=== PATIENT | male | born 1935 | race Caucasian/White ===

== ENCOUNTER 2019-12-10 11:01 | Day surgery (SDC) | payer OTHER ==
[2019-11-28 16:02] LABS: BASOPHILS # (AUTO) 0.1 X10'3 (0-0.2); BASOPHILS % (AUTO) 0.6 % (0-1); EOSINOPHILS % (AUTO) 0.1 % (0-6)
[2019-11-28 16:04] LABS: LYMPHOCYTES # (AUTO) 2.4 X10'3 (1.1-4.8); LYMPHOCYTES % (AUTO) 13.9 % (21-51); MEAN CORPUSCULAR HEMOGLOBIN 29.3 PG (27.0-31.0); MEAN CORPUSCULAR HGB CONC 32.9 g/dL (33.0-36.5); MEAN CORPUSCULAR VOLUME 88.9 FL (78-98); MEAN PLATELET VOLUME 10.8 FL (7.4-10.4); MONOCYTES % (AUTO) 5.6 % (2-12); NEUTROPHILS # (AUTO) 13.9 X10'3 (1.8-7.7); NEUTROPHILS % (AUTO) 79.8 % (42-75); PRE OP HEMATOCRIT 32.2 % (42.0-52.0); RED BLOOD COUNT 3.62 X10'6 (4.70-6.10); RED CELL DISTRIBUTION WIDTH 17.4 % (11.5-14.5)
[2019-11-28 16:17] LABS: PRE OP INR 1.1 INR; PRE OP PROTIME 11.3 SECONDS (9.0-12.0)
[2019-11-28 16:21] LABS: ALBUMIN 4.2 G/DL (3.4-5.0); ALBUMIN/GLOBULIN RATIO 1.1 (1.1-1.5); ALKALINE PHOSPHATASE 84 IU/L (46-116); BLOOD UREA NITROGEN 52 MG/DL (7-18); BUN/CREATININE RATIO 17.9 (5.4-32.0); CHLORIDE 97 MMOL/L (99-107); CREATININE 2.91 MG/DL (0.60-1.10); PRE OP ALT 28 U/L (30-65); PRE OP ANION GAP 7 (8-16); PRE OP AST 31 U/L (10-37); PRE OP BILIRUB, TOTAL 0.4 MG/DL (0.0-1.0); PRE OP GLUCOSE 110 MG/DL (70-104); PRE OP POTASSIUM 3.6 MMOL/L (3.4-5.1); PRE OP SODIUM 135 MMOL/L (135-145); TOTAL CARBON DIOXIDE 31.4 MMOL/L (24-32); TOTAL PROTEIN 7.9 G/DL (6.4-8.2); eGFR 21 ML/MIN
[2019-11-28 16:36] LABS: PRE OP HEMOGLOBIN 10.6 g/dL (14.0-17.9)
[2019-11-28 16:37] LABS: PRE OP PLATELET COUNT 34 X10'3 (140-440)
[2019-11-28 16:40] LABS: ANISOCYTOSIS 1+; PLATELET ESTIMATE DECREASED; POLYCHROMASIA FEW; SCHISTOCYTES FEW; TOTAL CELLS COUNTED 100
[2019-11-28 16:41] LABS: LARGE PLATELETS FEW
[2019-12-10] VITALS (12 sets, daily range): BP systolic 137–160; BP diastolic 67–84
[~2019-12-10] VITALS: Ht 175.3 cm; Wt 99.8 kg
[~2019-12-10 11:01] MED LIST: ATOR40TA PO; ATR0.5NEB NEB; BUPR150T8 PO; CHLO50TA PO; CHOL20004 PO; DOCU100C40 PO; DOCUMENT DATE & TIME OF BETA-BLOCKER PO ONE; FERR159T2 PEG; FINA5TAB11 PO; FLO0.4C PO; FLUT1DIS20 INH; HYDR-4069 PO; LANS30CA56 PO; LOSA25TA96 PO; MESSAGE TO NURSING IV ONE; METO-539 PO; NITR0.4T51 SL; SENN-263 PO; SERT50TA PO; [UNRECOGNIZED DRUG - CODE] PO; famotidine 20mg tablet PO ONE; ringers solution, lacted 1,000 ML IV SCH
[2019-12-10] MEDS ORDERED: fentaNYL/PF 50MCG/1 ML 2ML syringe ONE (13:11)
[2019-12-10] MEDS ORDERED: midazolam 2 mg/2 ml injection ONE (13:11)
[2019-12-10] MEDS ORDERED: ringers solution, lacted 1,000 ML IV SCH (13:14)
[2019-12-10] MEDS ORDERED: meperidine/PF 25mg/ml syringe IV PRN (13:15)
[2019-12-10] MEDS ORDERED: morphine 4 MG/ML inj SYRINge IV PRN (13:15)
[2019-12-10] MEDS ORDERED: proCHLORperazine 10 MG/2 ml inj IV PRN (13:15)
[2019-12-10] MEDS ORDERED: morphine 2 MG/ML inj. syringe IV PRN (13:15)
[2019-12-10] MEDS ORDERED: labetalol 20mg/4ml (5mg/ml) syringe IV PRN (13:15)
[2019-12-10] MEDS ORDERED: ondansetron/PF 4mg/2ml inj IV PRN (13:15)
[2019-12-10] MEDS ORDERED: HYDROmorphone inj. 0.5 MG/0.5 ML DISP.SYRIN IV PRN ×2 (13:15)
[2019-12-10] MEDS ORDERED: hydrALAZINE 20mg/ml inj. IV PRN (13:15)
[2019-12-10] MEDS ORDERED: LIDOcaine 1% 30ml preserv. free vial ONE (13:16)
[2019-12-10] MEDS ORDERED: propofol inj 20 ML IV ONE (13:25)
--- NOTE | 2019-12-10 13:39 | NUR ---
Received from OR via [facility], accompanied by Anesthesiologist DR ARBOLEDA and report given by Anesthesiologist. PT DROWSY, DENIES PAIN, RIGHT HIP/FLANK W/SMALL PRESSURE DRSViky CDI. Addendum: 12/10/19 at 1401 by Lilo Kinsey RN Amended: Links added.
[2019-12-10 14:08] LABS: MEAN CORPUSCULAR HGB CONC 32.8 g/dL (33.0-36.5); MONOCYTES # (AUTO) 0.7 X10'3 (0-0.9); NEUTROPHILS # (AUTO) 11.9 X10'3 (1.8-7.7); WHITE BLOOD COUNT 14.3 X10'3 (4.5-11.0)
[2019-12-10 14:10] LABS: BASOPHILS % (AUTO) 0.3 % (0-1); EOSINOPHILS % (AUTO) 0.1 % (0-6); HEMATOCRIT 28.8 % (42.0-52.0); HEMOGLOBIN 9.4 g/dl (14.0-17.9); LYMPHOCYTES # (AUTO) 1.7 X10'3 (1.1-4.8); LYMPHOCYTES % (AUTO) 11.7 % (21-51); MEAN CORPUSCULAR HEMOGLOBIN 29.4 PG (27.0-31.0); MEAN CORPUSCULAR VOLUME 89.6 FL (78-98); MEAN PLATELET VOLUME 10.7 FL (7.4-10.4); MONOCYTES % (AUTO) 4.7 % (2-12); NEUTROPHILS % (AUTO) 83.2 % (42-75); RED BLOOD COUNT 3.22 X10'6 (4.70-6.10); RED CELL DISTRIBUTION WIDTH 17.9 % (11.5-14.5)
[2019-12-10 15:02] LABS: NUCLEATED RED BLOOD CELLS 2 /100WBC (0-0); PLATELET ESTIMATE DECREASED; TOTAL CELLS COUNTED 100
[2019-12-10 15:03] LABS: ANISOCYTOSIS 1+
[2019-12-10 15:04] LABS: HYPOCHROMASIA 1+; POLYCHROMASIA 1+
[2019-12-10 15:07] LABS: SCHISTOCYTES FEW; TEAR DROP CELLS FEW
[2019-12-10 15:08] LABS: HYPOGRANULAR PLATELETS FEW; LARGE PLATELETS FEW
[2019-12-10 15:15] LABS: PLATELET COUNT 46 X10'3 (140-440)
--- NOTE | 2019-12-10 15:49 | NUR ---
PT UP AND ABLE TO AMBULATE SAFELY, D/C INSTRUCTIONS GIVEN AND GONE OVER W/PT WHO VERBALIZED UNDERSTANDING, PT D/CD TO PRIVATE VEHICLE VIA W/C W/O INCIDENT. Addendum: 12/10/19 at 1605 by Lilo Kinsey RN Amended: Links added.
== END 2019-12-10 15:49 | disposition home or self-care (01) ==
LOC: PRE-OP 11:01
PROVIDERS: ATTEND Pathology Cytopathology
DX: D46.9 Myelodysplastic syndrome, unspecified (principal); I10 Essential (primary) hypertension; F32.9 Major depressive disorder, single episode, unspecified; E11.9 Type 2 diabetes mellitus without complications; K21.9 Gastro-esophageal reflux disease without esophagitis; Z90.49 Acquired absence of other specified parts of digestive tract; Z88.8 Allergy status to other drugs, medicaments and biological substances; Z87.891 Personal history of nicotine dependence; Z79.899 Other long term (current) drug therapy; Z95.5 Presence of coronary angioplasty implant and graft; Z98.890 Other specified postprocedural states; Z20.828 Contact with and (suspected) exposure to other viral communicable diseases
CPT/HCPCS: 36415; 38222; 71046; 80053; 85025; 85610; 85730; 86885; 86900; 86901; 87635; 93005; J2001; J2250; J2704; J3010; 85007; A4618; J7120

== ENCOUNTER 2020-02-28 04:41 | Inpatient (IN) | payer OTHER, MEDICARE ==
[~2020-02-28] VITALS: Ht 175.3 cm; Wt 95.5 kg
[~2020-02-28 04:41] MED LIST changes: -DOCUMENT DATE & TIME OF BETA-BLOCKER PO ONE; -MESSAGE TO NURSING IV ONE; -famotidine 20mg tablet PO ONE; -ringers solution, lacted 1,000 ML IV SCH
[2020-02-28 05:31] LABS: CLARITY,URINE CLEAR (Clear); COLOR,URINE YELLOW (Yellow); GLUCOSE, URINE NEGATIVE (Neg); KETONES,URINE NEGATIVE (Neg); LEUKOCYTE ESTERASE ,URINE TRACE (Neg); NITRITES, URINE NEGATIVE (Neg); OCCULT BLOOD,URINE NEGATIVE (Neg); PH,URINE 5.5 (4.8-8.0); PROTEIN,URINE NEGATIVE (Neg); UA COLLECTION TYPE URINAL; UROBILINOGEN,URINE 0.2 E.U/dL (0.2-1.0)
[2020-02-28 05:33] LABS: BASOPHILS # (AUTO) 0.2 X10'3 (0-0.2); BASOPHILS % (AUTO) 0.7 % (0-1); EOSINOPHILS # (AUTO) 0.1 X10'3 (0-0.9); EOSINOPHILS % (AUTO) 0.4 % (0-6); HEMATOCRIT 34.6 % (42.0-52.0); HEMOGLOBIN 11.1 g/dl (14.0-17.9); LYMPHOCYTES # (AUTO) 1.1 X10'3 (1.1-4.8); LYMPHOCYTES % (AUTO) 4.1 % (21-51); MEAN CORPUSCULAR HEMOGLOBIN 28.5 PG (27.0-31.0); MEAN CORPUSCULAR HGB CONC 32.1 g/dL (33.0-36.5); MEAN CORPUSCULAR VOLUME 88.7 FL (78-98); MEAN PLATELET VOLUME 10.6 FL (7.4-10.4); MONOCYTES % (AUTO) 0.1 % (2-12); NEUTROPHILS # (AUTO) 24.3 X10'3 (1.8-7.7); NEUTROPHILS % (AUTO) 94.7 % (42-75); PLATELET COUNT 61 X10'3 (140-440); RED CELL DISTRIBUTION WIDTH 16.9 % (11.5-14.5)
[2020-02-28 05:42] LABS: ALANINE AMINOTRANSFERASE 21 U/L (12-78); ALBUMIN/GLOBULIN RATIO 0.7 (1.1-1.5); ALKALINE PHOSPHATASE 83 IU/L (46-116); ANION GAP 7 (8-16); ASPARTATE AMINO TRANSFERASE 17 U/L (10-37); BILIRUBIN,TOTAL 0.4 MG/DL (0.1-1.0); BLOOD UREA NITROGEN 43 MG/DL (7-18); BUN/CREATININE RATIO 20.7 (5.4-32.0); CALCIUM 9.8 MG/DL (8.5-10.1); CHLORIDE 102 MMOL/L (99-107); CREATININE 2.08 MG/DL (0.60-1.10); GLUCOSE 169 MG/DL (70-104); LIPASE 74 U/L (73-393); POTASSIUM 3.4 MMOL/L (3.5-5.1); SODIUM 139 MMOL/L (135-145); TOTAL CARBON DIOXIDE 30.4 MMOL/L (24-32); TOTAL PROTEIN 7.5 G/DL (6.4-8.2); eGFR 31 ML/MIN
[2020-02-28 05:51] LABS: SQUAMOUS EPITHELIAL CELL,UR MANY /LPF (FEW)
[2020-02-28 05:52] LABS: MUCUS STRANDS FEW /LPF (Neg)
[2020-02-28 05:53] LABS: CELLULAR CAST 0-4 /LPF (NEGATIVE); COARSE GRANULAR CAST 0-3 /LPF (NEGATIVE)
[2020-02-28 05:55] LABS: BACTERIA,URINE 1+ /HPF (Neg); RBC,URINE 0-2 /HPF (0-2)
[2020-02-28] MEDS ORDERED: CIPR-230 PO (05:55)
[2020-02-28] MEDS ORDERED: METR-159 PO (05:56)
[2020-02-28 06:10] LABS: WHITE BLOOD COUNT 25.7 X10'3 (4.5-11.0)
[2020-02-28] MEDS ORDERED: ondansetron/PF 4mg/2ml inj IV ONE (06:20)
[2020-02-28] MEDS ORDERED: normal saline 1000ML IV soln IVB ONE (06:20)
[2020-02-28] MEDS ORDERED: metroNIDAZOLE-Flagyl 500mg/NS 100 ML IV ONE (06:20)
[2020-02-28] MEDS ORDERED: levoFLOXACIN-Levaquin 750MG/D5 150 ML IV ONE (06:20)
--- NOTE | 2020-02-28 06:22 | NUR ---
PATIENT RECEIVED ON BED AWAKE.
[2020-02-28] MEDS: morphine 4 MG/ML inj SYRINge IV PRN ×2 (06:36→09:52)
[2020-02-28] MEDS ORDERED: bisacodyl 10mg suppository rectal RC PRN (07:20)
[2020-02-28] MEDS ORDERED: potassium CL 10mEq/100ml bag 100 ML IV PRN ×2 (07:20)
[2020-02-28] MEDS ORDERED: magnesium Cl slow-release 64mg tablet PO PRN (07:20)
[2020-02-28] MEDS ORDERED: acetaminophen 650mg rectal suppository RC PRN (07:20)
[2020-02-28] MEDS ORDERED: magnesium 2GM in 50ml NS 50 ML IV PRN (07:20)
[2020-02-28] MEDS ORDERED: ondansetron/PF 4mg/2ml inj IV PRN (07:20)
[2020-02-28] MEDS ORDERED: magnesium 4gm in 100ml NS 100 ML IV PRN (07:20)
[2020-02-28] MEDS ORDERED: metoclopramide 5 mg/ml inj IV PRN (07:20)
[2020-02-28] MEDS ORDERED: potassium Cl 20 mEq SR tablet PO PRN ×2 (07:20)
[2020-02-28] MEDS ORDERED: acetaminophen 325mg tablet PO PRN ×2 (07:20)
[2020-02-28] MEDS ORDERED: diphenhydrAMINE 50 mg/ml inj IV PRN (07:20)
[2020-02-28] MEDS ORDERED: diphenhydrAMINE 25mg capsule PO PRN (07:20)
[2020-02-28] MEDS ORDERED: mag hydrox/Alum hydrox/simeth 30ml oral suspension PO PRN ×2 (07:20→17:45)
[2020-02-28] MEDS ORDERED: morphine 2 MG/ML inj. syringe IV PRN ×2 (07:20)
[2020-02-28] MEDS ORDERED: HYDROcodone/acetaminophen 5mg/325mg tablet PO PRN (07:20)
[2020-02-28] MEDS: K and/or MAG REPLACEMENT MC SCH ×2 (08:00→20:00)
[2020-02-28 08:25] LABS: ANISOCYTOSIS 1+; PLATELET ESTIMATE DECREASED; TOTAL CELLS COUNTED 100
[2020-02-28 08:27] LABS: SCHISTOCYTES FEW
[2020-02-28 08:28] LABS: BURR CELLS FEW; POLYCHROMASIA FEW
[2020-02-28 08:39] LABS: HEMOGLOBIN A1C 6.2 % (4.5-6.2)
[2020-02-28] MEDS: heparin, porcine 5000 units/ml vial SQ SCH ×2 (09:50→20:06)
[2020-02-28] MEDS: docusate sod 100mg capsule PO SCH ×2 (09:50→20:04)
[2020-02-28] MEDS: dextrose 5%-normal saline 1,000 ML IV SCH ×2 (09:50→20:02)
[2020-02-28] MEDS ORDERED: IRON1CAP13 PO (13:06)
--- NOTE | 2020-02-28 13:45 | NUR ---
PATIENT RECEIVED FROM ER WILL HOLD UNTIL A ROOM IS AVAILABLE . PATIENT SETTLED INTO ROOM 1334A. NO DISTRESS NOTED. C/O LOWER ABDOMINAL PAIN . TO MEDICATE FOR DISCOMFORT SOON. PATIENT HAS GLASSES BUT NO OTHER BELONGINGS WITH HIM. PATIENT IS ALERT AND ORIENTED.
--- NOTE | 2020-02-28 15:03 | NUR ---
REPORT GIVEN TO WALTER AVILES. GIVEN OPPORTUNITY TO ASK QUESTIONS AND UPDATE GIVEN. PATIENT STATED SLIGHT IMPROVEMENT WITH HIS DISCOMFORT SINCE HAVING PAIN MEDICATION. TRANSFERED VIA W/C TO ROOM 347B. PATIENT HAS GLASSES ON AT THIS TIME. NO DISTRESS NOTED.
--- NOTE | 2020-02-28 15:03 | NUR ---
I have received report from STEFAN Lopez and had the opportunity to ask questions and assume patient care.
[2020-02-28 15:30] VITALS: BP 121/55
[2020-02-28] MEDS: metroNIDAZOLE-Flagyl 500mg/NS 100 ML IV SCH ×2 (16:25→23:22)
[2020-02-28] MEDS ORDERED: ipratropium 0.5 MG/2.5ML nebule NEB PRN (17:45)
[2020-02-28] MEDS ORDERED: sennosides 8.6mg tablet PO PRN (17:45)
[2020-02-28] MEDS ORDERED: docusate sod 100mg capsule PO PRN (17:45)
[2020-02-28 18:00] VITALS: BP 122/57
[2020-02-28] MEDS: HYDROmorphone 1 mg/ml syringe IV PRN ×2 (18:25→23:19)
--- NOTE | 2020-02-28 18:45 | NUR ---
Patient in room [facility]. I have received report from STEFAN Osman and had the opportunity to ask questions and assume patient care. Pt sitting up in bed no complaints, turns self with ease. Pt states pain is much better now 05/28. Addendum: 02/28/20 at 1901 by Davidson Tran RN Amended: Links added.
--- NOTE | 2020-02-28 18:54 | NUR ---
Problems reprioritized. Patient report given, questions answered & plan of care reviewed with STEFAN Koehler.
[2020-02-28] MEDS: lansoprazole 15mg solutab PO SCH (20:03)
[2020-02-28] MEDS: atorvastatin 20mg tablet PO SCH (20:09)
[2020-02-28] MEDS: albuterol 2.5 MG/3 ML nebule NEB SCH (20:33)
[2020-02-28] MEDS: budesonide 0.5mg/2ml UD nebule IH SCH (20:33)
[2020-02-28] MEDS ORDERED: temazepam 15mg capsule PO PRN (21:00)
[2020-02-28] MEDS: hyDRALAzine 10mg tablet PO SCH (23:22)
[2020-02-28 23:28] VITALS: BP 147/69
[2020-02-29] MEDS: albuterol 2.5 MG/3 ML nebule NEB SCH ×4 (02:38→20:19)
[2020-02-29] MEDS: dextrose 5%-normal saline 1,000 ML IV SCH ×3 (03:20→23:20)
[2020-02-29 06:04] LABS: LYMPHOCYTES # (AUTO) 0.9 X10'3 (1.1-4.8); LYMPHOCYTES % (AUTO) 3.6 % (21-51); MONOCYTES # (AUTO) 0.1 X10'3 (0-0.9); MONOCYTES % (AUTO) 0.4 % (2-12)
[2020-02-29 06:07] LABS: BASOPHILS % (AUTO) 0.1 % (0-1); EOSINOPHILS # (AUTO) 0.4 X10'3 (0-0.9); EOSINOPHILS % (AUTO) 1.6 % (0-6); HEMATOCRIT 33.3 % (42.0-52.0); HEMOGLOBIN 10.7 g/dl (14.0-17.9); MEAN CORPUSCULAR HEMOGLOBIN 29.3 PG (27.0-31.0); MEAN CORPUSCULAR VOLUME 91.5 FL (78-98); MEAN PLATELET VOLUME 10.3 FL (7.4-10.4); NEUTROPHILS # (AUTO) 24.4 X10'3 (1.8-7.7); NEUTROPHILS % (AUTO) 94.3 % (42-75); PLATELET COUNT 65 X10'3 (140-440); RED BLOOD COUNT 3.64 X10'6 (4.70-6.10); RED CELL DISTRIBUTION WIDTH 17.3 % (11.5-14.5)
[2020-02-29 06:16] LABS: ALANINE AMINOTRANSFERASE 21 U/L (12-78); ALBUMIN 2.6 G/DL (3.4-5.0); ALBUMIN/GLOBULIN RATIO 0.6 (1.1-1.5); ALKALINE PHOSPHATASE 84 IU/L (46-116); ANION GAP 7 (8-16); ASPARTATE AMINO TRANSFERASE 16 U/L (10-37); BILIRUBIN,TOTAL 0.3 MG/DL (0.1-1.0); BLOOD UREA NITROGEN 37 MG/DL (7-18); BUN/CREATININE RATIO 18.6 (5.4-32.0); CALCIUM 9.8 MG/DL (8.5-10.1); CHLORIDE 105 MMOL/L (99-107); CHOL/HDL RATIO 2.4 (0.00-4.99); CHOLESTEROL 97 MG/DL (0-200); CREATININE 1.99 MG/DL (0.60-1.10); GLUCOSE 179 MG/DL (70-104); HDL CHOLESTEROL 40 MG/DL (35-60); LDL CHOLESTEROL 41 MG/DL (50-100); MAGNESIUM 2.4 MG/DL (1.5-2.4); PHOSPHORUS 4.5 MG/DL (2.3-4.5); POTASSIUM 3.5 MMOL/L (3.5-5.1); SODIUM 140 MMOL/L (135-145); TOTAL CARBON DIOXIDE 27.9 MMOL/L (24-32); TRIGLYCERIDES 93 MG/DL (20-135); eGFR 32 ML/MIN
[2020-02-29 06:48] LABS: WHITE BLOOD COUNT 25.9 X10'3 (4.5-11.0)
--- NOTE | 2020-02-29 06:49 | NUR ---
Patient in room [facility]. I have received report from STEFAN Koehler and had the opportunity to ask questions and assume patient care.
--- NOTE | 2020-02-29 06:50 | NUR ---
Problems reprioritized. Patient report given, questions answered & plan of care reviewed with STEFAN Osman. Addendum: 02/29/20 at 0651 by Davidson Tran RN Amended: Links added.
[2020-02-29 07:09] LABS: TOTAL CELLS COUNTED 100
[2020-02-29 07:10] LABS: ANISOCYTOSIS 1+; PLATELET ESTIMATE DECREASED
[2020-02-29 07:11] LABS: POLYCHROMASIA FEW; SCHISTOCYTES FEW
[2020-02-29 08:00] VITALS: BP 121/52
[2020-02-29] MEDS: heparin, porcine 5000 units/ml vial SQ SCH ×2 (08:00→20:00)
[2020-02-29] MEDS: K and/or MAG REPLACEMENT MC SCH ×2 (08:00→20:00)
[2020-02-29] MEDS: metroNIDAZOLE-Flagyl 500mg/NS 100 ML IV SCH ×3 (08:15→23:43)
[2020-02-29] MEDS: buPROPion SR 150mg tablet PO SCH (08:15)
[2020-02-29] MEDS: sertraline 50mg tablet PO SCH (08:15)
[2020-02-29] MEDS: docusate sod 100mg capsule PO SCH ×2 (08:16→20:41)
[2020-02-29] MEDS: tamsulosin 0.4mg capsule PO SCH (08:17)
[2020-02-29] MEDS: metoprolol succinate 25mg (24-HOUR) SR. Tablet PO SCH (08:17)
[2020-02-29] MEDS: losartan 50mg tablet PO SCH (08:17)
[2020-02-29] MEDS: iron polysaccharide complex 150mg capsule PO SCH (08:17)
[2020-02-29] MEDS: chlorthalidone 25mg tablet PO SCH (08:18)
[2020-02-29] MEDS: hyDRALAzine 10mg tablet PO SCH ×3 (08:18→23:37)
[2020-02-29] MEDS: lansoprazole 15mg solutab PO SCH ×2 (08:20→17:57)
[2020-02-29] MEDS: finasteride 5mg tablet PO SCH (08:20)
[2020-02-29] MEDS: budesonide 0.5mg/2ml UD nebule IH SCH ×2 (08:32→20:19)
[2020-02-29] MEDS: levoFLOXACIN-Levaquin 750MG/D5 150 ML IV SCH (09:48)
--- NOTE | 2020-02-29 09:57 | NUR ---
DM consult: Pt with A1c 6.2%, DM education not warranted at this time. Will continue to follow. Addendum: 02/29/20 at [address] Amended: Links added.
[2020-02-29 11:00] VITALS: BP 67/36
[2020-02-29] MEDS: HYDROmorphone 1 mg/ml syringe IV PRN ×2 (14:34→20:41)
[2020-02-29] MEDS ORDERED: normal saline 1000ml 1,000 ML IV ONE (17:30)
[2020-02-29 18:00] VITALS: BP 97/51
--- NOTE | 2020-02-29 18:49 | NUR ---
Problems reprioritized. Patient report given, questions answered & plan of care reviewed with STEFAN Hernandez.
[2020-02-29 19:42] LABS: CLARITY,URINE SLIGHTLY CLOUDY (Clear); COLOR,URINE AMBER (Yellow); GLUCOSE, URINE NEGATIVE (Neg); KETONES,URINE NEGATIVE (Neg); LEUKOCYTE ESTERASE ,URINE SMALL (Neg); NITRITES, URINE NEGATIVE (Neg); OCCULT BLOOD,URINE NEGATIVE (Neg); PROTEIN,URINE NEGATIVE (Neg); UROBILINOGEN,URINE 0.2 E.U/dL (0.2-1.0)
[2020-02-29 20:01] LABS: UA COLLECTION TYPE CLN CATCH MIDSTREAM
[2020-02-29 20:09] LABS: BACTERIA,URINE 1+ /HPF (Neg); RBC,URINE 0-2 /HPF (0-2); WBC,URINE 20-30 /HPF (0-4)
[2020-02-29 20:10] LABS: HYALINE CASTS 0-3 /LPF (NEGATIVE); MUCUS STRANDS FEW /LPF (Neg); SQUAMOUS EPITHELIAL CELL,UR MANY /LPF (FEW)
[2020-02-29] MEDS: atorvastatin 20mg tablet PO SCH (20:41)
[2020-03-01] VITALS: BP 107/42
[2020-03-01] MEDS: HYDROmorphone 1 mg/ml syringe IV PRN ×3 (01:57→20:38)
[2020-03-01] MEDS: albuterol 2.5 MG/3 ML nebule NEB SCH ×4 (03:00→20:49)
[2020-03-01 05:17] LABS: ALANINE AMINOTRANSFERASE 21 U/L (12-78); ALBUMIN 2.2 G/DL (3.4-5.0); ALBUMIN/GLOBULIN RATIO 0.6 (1.1-1.5); ALKALINE PHOSPHATASE 72 IU/L (46-116); ANION GAP 5 (8-16); ASPARTATE AMINO TRANSFERASE 20 U/L (10-37); BILIRUBIN,TOTAL 0.3 MG/DL (0.1-1.0); BLOOD UREA NITROGEN 38 MG/DL (7-18); BUN/CREATININE RATIO 15.4 (5.4-32.0); CHLORIDE 108 MMOL/L (99-107); CREATININE 2.46 MG/DL (0.60-1.10); GLUCOSE 164 MG/DL (70-104); MAGNESIUM 2.2 MG/DL (1.5-2.4); POTASSIUM 3.7 MMOL/L (3.5-5.1); SODIUM 141 MMOL/L (135-145); TOTAL CARBON DIOXIDE 27.7 MMOL/L (24-32); TOTAL PROTEIN 6.1 G/DL (6.4-8.2); eGFR 25 ML/MIN
[2020-03-01 05:29] LABS: HEMOGLOBIN 8.8 g/dl (14.0-17.9); MONOCYTES # (AUTO) 0.1 X10'3 (0-0.9); MONOCYTES % (AUTO) 0.4 % (2-12); RED BLOOD COUNT 3.12 X10'6 (4.70-6.10)
[2020-03-01 05:32] LABS: BASOPHILS % (AUTO) 0.1 % (0-1); EOSINOPHILS # (AUTO) 0.5 X10'3 (0-0.9); HEMATOCRIT 28.2 % (42.0-52.0); LYMPHOCYTES # (AUTO) 0.9 X10'3 (1.1-4.8); LYMPHOCYTES % (AUTO) 3.7 % (21-51); MEAN CORPUSCULAR HEMOGLOBIN 28.4 PG (27.0-31.0); MEAN CORPUSCULAR HGB CONC 31.4 g/dL (33.0-36.5); MEAN CORPUSCULAR VOLUME 90.4 FL (78-98); MEAN PLATELET VOLUME 10.3 FL (7.4-10.4); NEUTROPHILS # (AUTO) 23.9 X10'3 (1.8-7.7); NEUTROPHILS % (AUTO) 93.8 % (42-75); PLATELET COUNT 57 X10'3 (140-440); RED CELL DISTRIBUTION WIDTH 17.2 % (11.5-14.5)
[2020-03-01 05:58] LABS: WHITE BLOOD COUNT 25.5 X10'3 (4.5-11.0)
--- NOTE | 2020-03-01 06:43 | NUR ---
Patient in room [facility]. I have received report from STEFAN Hernandez and had the opportunity to ask questions and assume patient care.
[2020-03-01 07:00] VITALS: BP 111/66
[2020-03-01 07:47] LABS: ANISOCYTOSIS 1+; HYPOCHROMASIA 1+; PLATELET ESTIMATE DECREASED; POIKILOCYTOSIS FEW; POLYCHROMASIA FEW; TOTAL CELLS COUNTED 100
[2020-03-01] MEDS: sertraline 50mg tablet PO SCH (07:53)
[2020-03-01] MEDS: tamsulosin 0.4mg capsule PO SCH (07:53)
[2020-03-01] MEDS: docusate sod 100mg capsule PO SCH ×2 (07:54→20:38)
[2020-03-01] MEDS: losartan 50mg tablet PO SCH (07:54)
[2020-03-01] MEDS: finasteride 5mg tablet PO SCH (07:54)
[2020-03-01] MEDS: metoprolol succinate 25mg (24-HOUR) SR. Tablet PO SCH (07:54)
[2020-03-01] MEDS: lansoprazole 15mg solutab PO SCH ×2 (07:54→17:50)
[2020-03-01] MEDS: iron polysaccharide complex 150mg capsule PO SCH (07:54)
[2020-03-01] MEDS: metroNIDAZOLE-Flagyl 500mg/NS 100 ML IV SCH ×2 (07:55→16:58)
[2020-03-01] MEDS: buPROPion SR 150mg tablet PO SCH (07:55)
[2020-03-01] MEDS: heparin, porcine 5000 units/ml vial SQ SCH ×2 (08:00→20:00)
[2020-03-01] MEDS: hyDRALAzine 10mg tablet PO SCH ×2 (08:00→16:00)
[2020-03-01] MEDS: chlorthalidone 25mg tablet PO SCH (08:00)
[2020-03-01] MEDS: K and/or MAG REPLACEMENT MC SCH ×2 (08:00→20:00)
[2020-03-01] MEDS: budesonide 0.5mg/2ml UD nebule IH SCH ×2 (09:05→20:00)
[2020-03-01] MEDS: dextrose 5%-normal saline 1,000 ML IV SCH ×2 (09:20→17:05)
[2020-03-01] MEDS: levoFLOXACIN-Levaquin 750MG/D5 150 ML IV SCH (09:27)
[2020-03-01 11:00] VITALS: BP 95/50
[2020-03-01] MEDS ORDERED: levoFLOXACIN-Levaquin 750MG/D5 150 ML IV SCH (14:10)
[2020-03-01 17:00] VITALS: BP 99/51
[2020-03-01 18:00] VITALS: BP 105/50
--- NOTE | 2020-03-01 18:38 | NUR ---
Problems reprioritized. Patient report given, questions answered & plan of care reviewed with STEFAN Hernandez.
[2020-03-01] MEDS: polyethylene glycol 3350 17gm powd pack PO SCH (20:36)
[2020-03-01] MEDS: lactobacillus rhamnosus 10,000 MMU CELLS/CAPSULE PO SCH (20:37)
[2020-03-01] MEDS: atorvastatin 20mg tablet PO SCH (20:37)
[2020-03-02] VITALS (7 sets, daily range): BP systolic 97–124; BP diastolic 45–60
[2020-03-02] MEDS: metroNIDAZOLE-Flagyl 500mg/NS 100 ML IV SCH ×4 (01:15→23:33)
[2020-03-02] MEDS: HYDROmorphone 1 mg/ml syringe IV PRN ×3 (01:19→22:04)
[2020-03-02] MEDS: albuterol 2.5 MG/3 ML nebule NEB SCH ×4 (03:00→20:02)
--- NOTE | 2020-03-02 05:12 | NUR ---
Student Medication Administration: For all medication-pass time frames, all medication were reviewed, dispensed, administered and documented per hospital policy by Johana Villafana Nurse. Student documentation: I have reviewed and agree with all interventions, assessments performed and documented by Johana Villafana.
[2020-03-02] MEDS: dextrose 5%-normal saline 1,000 ML IV SCH ×2 (05:20→15:49)
[2020-03-02 05:41] LABS: BASOPHILS % (AUTO) 0.2 % (0-1); EOSINOPHILS # (AUTO) 0.6 X10'3 (0-0.9); EOSINOPHILS % (AUTO) 2.9 % (0-6); HEMATOCRIT 26.4 % (42.0-52.0); HEMOGLOBIN 8.4 g/dl (14.0-17.9); LYMPHOCYTES # (AUTO) 1.2 X10'3 (1.1-4.8); LYMPHOCYTES % (AUTO) 5.6 % (21-51); MEAN CORPUSCULAR HEMOGLOBIN 28.4 PG (27.0-31.0); MEAN CORPUSCULAR HGB CONC 31.9 g/dL (33.0-36.5); MEAN CORPUSCULAR VOLUME 89.2 FL (78-98); MEAN PLATELET VOLUME 10.7 FL (7.4-10.4); MONOCYTES # (AUTO) 0.1 X10'3 (0-0.9); MONOCYTES % (AUTO) 0.4 % (2-12); NEUTROPHILS # (AUTO) 19.7 X10'3 (1.8-7.7); NEUTROPHILS % (AUTO) 90.9 % (42-75); PLATELET COUNT 56 X10'3 (140-440); RED BLOOD COUNT 2.95 X10'6 (4.70-6.10); RED CELL DISTRIBUTION WIDTH 17.1 % (11.5-14.5); WHITE BLOOD COUNT 21.7 X10'3 (4.5-11.0)
[2020-03-02 05:50] LABS: ALANINE AMINOTRANSFERASE 24 U/L (12-78); ALBUMIN 2.1 G/DL (3.4-5.0); ALBUMIN/GLOBULIN RATIO 0.6 (1.1-1.5); ALKALINE PHOSPHATASE 67 IU/L (46-116); ANION GAP 8 (8-16); ASPARTATE AMINO TRANSFERASE 25 U/L (10-37); BILIRUBIN,TOTAL 0.2 MG/DL (0.1-1.0); BLOOD UREA NITROGEN 32 MG/DL (7-18); BUN/CREATININE RATIO 15.6 (5.4-32.0); CALCIUM 9.2 MG/DL (8.5-10.1); CHLORIDE 108 MMOL/L (99-107); CREATININE 2.05 MG/DL (0.60-1.10); GLUCOSE 144 MG/DL (70-104); MAGNESIUM 2.1 MG/DL (1.5-2.4); PHOSPHORUS 3.1 MG/DL (2.3-4.5); POTASSIUM 3.4 MMOL/L (3.5-5.1); SODIUM 140 MMOL/L (135-145); TOTAL CARBON DIOXIDE 24.4 MMOL/L (24-32); TOTAL PROTEIN 5.7 G/DL (6.4-8.2); eGFR 31 ML/MIN
--- NOTE | 2020-03-02 07:07 | NUR ---
Patient in room [facility]. I have received report from David Acosta and had the opportunity to ask questions and assume patient care.
[2020-03-02] MEDS: heparin, porcine 5000 units/ml vial SQ SCH ×2 (08:00→20:00)
[2020-03-02] MEDS: hyDRALAzine 10mg tablet PO SCH ×4 (08:00→23:35)
[2020-03-02] MEDS: iron polysaccharide complex 150mg capsule PO SCH (08:00)
[2020-03-02] MEDS: K and/or MAG REPLACEMENT MC SCH ×2 (08:00→20:00)
[2020-03-02 08:11] LABS: TOTAL CELLS COUNTED 100
[2020-03-02 08:12] LABS: ANISOCYTOSIS 1+; PLATELET ESTIMATE DECREASED
[2020-03-02 08:13] LABS: ACANTHOCYTES FEW; HYPOCHROMASIA 1+; POLYCHROMASIA FEW; SCHISTOCYTES FEW; TEAR DROP CELLS 1+
[2020-03-02] MEDS: budesonide 0.5mg/2ml UD nebule IH SCH ×2 (08:28→20:02)
[2020-03-02] MEDS: chlorthalidone 25mg tablet PO SCH (08:35)
[2020-03-02] MEDS: losartan 50mg tablet PO SCH (08:36)
[2020-03-02] MEDS: lactobacillus rhamnosus 10,000 MMU CELLS/CAPSULE PO SCH ×2 (08:37→22:10)
[2020-03-02] MEDS: docusate sod 100mg capsule PO SCH ×2 (08:37→22:10)
[2020-03-02] MEDS: sertraline 50mg tablet PO SCH (08:37)
[2020-03-02] MEDS: tamsulosin 0.4mg capsule PO SCH (08:38)
[2020-03-02] MEDS: buPROPion SR 150mg tablet PO SCH (08:38)
[2020-03-02] MEDS: finasteride 5mg tablet PO SCH (08:50)
[2020-03-02] MEDS: lansoprazole 15mg solutab PO SCH ×2 (08:50→17:39)
--- NOTE | 2020-03-02 09:00 | NUR ---
Problems reprioritized. Patient report given, questions answered & plan of care reviewed with Zuleima AVILES.
[2020-03-02] MEDS: metoprolol succinate 25mg (24-HOUR) SR. Tablet PO SCH (10:55)
--- NOTE | 2020-03-02 12:00 | NUR ---
SPOKE TO MD REGARDING PTS HISTORY OF DIABETES AND ALSO REJECTED CULTURE. MD ORDERED BG CHECKS BUT DID NOT WANT ANOTHER UA FOR CULTURE AT THIS TIME.
[2020-03-02] MEDS ORDERED: potassium Cl 20 mEq SR tablet PO PRN (12:30)
[2020-03-02] MEDS: potassium Cl 20 mEq SR tablet PO PRN ×2 (15:52→22:19)
[2020-03-02] MEDS: HYDROcodone/acetaminophen 10/325mg tab PO PRN (15:53)
[2020-03-02] MEDS: magnesium hydroxide 30ml (MOM) UD suspension PO PRN (17:38)
--- NOTE | 2020-03-02 18:41 | NUR ---
GAVE REPORT TO YESENIA AVILES.
[2020-03-02] MEDS: atorvastatin 20mg tablet PO SCH (22:10)
[2020-03-02] MEDS: diatr meglu/diatrizoate 30ml oral sol.-(3 dose) bottle PO SCH (22:12)
[2020-03-02] MEDS: polyethylene glycol 3350 17gm powd pack PO SCH (22:12)
[2020-03-03] VITALS: BP 115/58
--- NOTE | 2020-03-03 00:06 | NUR ---
Patient had drank gastroview with apple juice earlier. Addendum: 03/03/20 at 0007 by Deana Nino RN Amended: Links added.
[2020-03-03] MEDS: dextrose 5%-normal saline 1,000 ML IV SCH ×3 (01:20→21:20)
[2020-03-03] MEDS: HYDROmorphone 1 mg/ml syringe IV PRN ×3 (02:33→23:45)
[2020-03-03] MEDS: albuterol 2.5 MG/3 ML nebule NEB SCH ×3 (02:53→20:02)
[2020-03-03 05:38] LABS: BASOPHILS % (AUTO) 0.2 % (0-1); EOSINOPHILS # (AUTO) 0.1 X10'3 (0-0.9); EOSINOPHILS % (AUTO) 0.5 % (0-6); HEMATOCRIT 26.3 % (42.0-52.0); HEMOGLOBIN 8.5 g/dl (14.0-17.9); LYMPHOCYTES # (AUTO) 1.3 X10'3 (1.1-4.8); MEAN CORPUSCULAR HEMOGLOBIN 28.8 PG (27.0-31.0); MEAN CORPUSCULAR HGB CONC 32.3 g/dL (33.0-36.5); MEAN CORPUSCULAR VOLUME 89.3 FL (78-98); MEAN PLATELET VOLUME 10.3 FL (7.4-10.4); MONOCYTES # (AUTO) 0.2 X10'3 (0-0.9); MONOCYTES % (AUTO) 0.7 % (2-12); NEUTROPHILS # (AUTO) 20.5 X10'3 (1.8-7.7); NEUTROPHILS % (AUTO) 92.6 % (42-75); PLATELET COUNT 59 X10'3 (140-440); RED BLOOD COUNT 2.94 X10'6 (4.70-6.10); WHITE BLOOD COUNT 22.2 X10'3 (4.5-11.0)
[2020-03-03 05:40] LABS: ALANINE AMINOTRANSFERASE 29 U/L (12-78); ALBUMIN 2.1 G/DL (3.4-5.0); ALBUMIN/GLOBULIN RATIO 0.6 (1.1-1.5); ALKALINE PHOSPHATASE 96 IU/L (46-116); ANION GAP 6 (8-16); ASPARTATE AMINO TRANSFERASE 38 U/L (10-37); BILIRUBIN,TOTAL 0.3 MG/DL (0.1-1.0); BLOOD UREA NITROGEN 25 MG/DL (7-18); BUN/CREATININE RATIO 13.9 (5.4-32.0); CALCIUM 8.8 MG/DL (8.5-10.1); CHLORIDE 108 MMOL/L (99-107); GLUCOSE 124 MG/DL (70-104); MAGNESIUM 1.8 MG/DL (1.5-2.4); PHOSPHORUS 2.7 MG/DL (2.3-4.5); POTASSIUM 3.7 MMOL/L (3.5-5.1); SODIUM 141 MMOL/L (135-145); TOTAL CARBON DIOXIDE 26.6 MMOL/L (24-32); TOTAL PROTEIN 5.9 G/DL (6.4-8.2); eGFR 36 ML/MIN
--- NOTE | 2020-03-03 06:45 | NUR ---
Problems reprioritized. Patient report given, questions answered & plan of care reviewed with Rita AVILES.
[2020-03-03 07:20] VITALS: BP 117/63
[2020-03-03 07:45] LABS: ANISOCYTOSIS 1+; PLATELET ESTIMATE DECREASED; TOTAL CELLS COUNTED 100
[2020-03-03 07:46] LABS: ACANTHOCYTES FEW; SCHISTOCYTES 1+
[2020-03-03] MEDS: diatr meglu/diatrizoate 30ml oral sol.-(3 dose) bottle PO SCH ×2 (07:49→10:14)
[2020-03-03] MEDS: magnesium hydroxide 30ml (MOM) UD suspension PO PRN (07:50)
[2020-03-03] MEDS: tamsulosin 0.4mg capsule PO SCH (07:51)
[2020-03-03] MEDS: metoprolol succinate 25mg (24-HOUR) SR. Tablet PO SCH (07:51)
[2020-03-03] MEDS: buPROPion SR 150mg tablet PO SCH (07:51)
[2020-03-03] MEDS: sertraline 50mg tablet PO SCH (07:51)
[2020-03-03] MEDS: chlorthalidone 25mg tablet PO SCH (07:52)
[2020-03-03] MEDS: losartan 50mg tablet PO SCH (07:52)
[2020-03-03] MEDS: iron polysaccharide complex 150mg capsule PO SCH (07:53)
[2020-03-03] MEDS: docusate sod 100mg capsule PO SCH ×2 (07:53→20:00)
[2020-03-03] MEDS: lactobacillus rhamnosus 10,000 MMU CELLS/CAPSULE PO SCH ×2 (07:53→20:20)
[2020-03-03] MEDS: metroNIDAZOLE-Flagyl 500mg/NS 100 ML IV SCH ×3 (07:54→23:41)
[2020-03-03] MEDS: lansoprazole 15mg solutab PO SCH ×2 (07:54→17:18)
[2020-03-03] MEDS: K and/or MAG REPLACEMENT MC SCH ×2 (07:54→20:00)
[2020-03-03] MEDS: finasteride 5mg tablet PO SCH (07:54)
[2020-03-03] MEDS: heparin, porcine 5000 units/ml vial SQ SCH ×2 (07:55→20:00)
[2020-03-03] MEDS: HYDROcodone/acetaminophen 10/325mg tab PO PRN ×2 (07:59→20:11)
[2020-03-03] MEDS: hyDRALAzine 10mg tablet PO SCH ×3 (10:18→23:43)
[2020-03-03] MEDS: budesonide 0.5mg/2ml UD nebule IH SCH ×2 (11:01→20:01)
--- NOTE | 2020-03-03 11:10 | NUR ---
does not want garcia removed at this time.
--- NOTE | 2020-03-03 11:14 | NUR ---
Discussed dark/black colored soft stool with MD. No new orders at this time. Pt. is also taking iron which could be the cause of the colored stools.
[2020-03-03 11:31] VITALS: BP 133/63
[2020-03-03 16:11] VITALS: BP 140/80
--- NOTE | 2020-03-03 18:15 | NUR ---
Patient in room [facility]. I have received report from Rita AVILES and had the opportunity to ask questions and assume patient care.
--- NOTE | 2020-03-03 18:17 | NUR ---
CASE MANAGEMENT Spoke with pt. regarding a rehab facility. Pt. was not open to the option at all stating, "Haven't you been to the [facility]? I've got nurses everywhere who can help me." Education on the need for rehab refused by pt.
--- NOTE | 2020-03-03 18:20 | NUR ---
Gave report to Deana AVILES.
[2020-03-03 19:00] VITALS: BP 130/63
[2020-03-03] MEDS: atorvastatin 20mg tablet PO SCH (20:21)
[2020-03-03] MEDS: polyethylene glycol 3350 17gm powd pack PO SCH (20:28)
[2020-03-04] VITALS: BP 133/67
[2020-03-04] MEDS: HYDROmorphone 1 mg/ml syringe IV PRN (04:04)
[2020-03-04] MEDS: albuterol 2.5 MG/3 ML nebule NEB SCH ×2 (04:11→08:32)
[2020-03-04 05:15] LABS: BASOPHILS % (AUTO) 0.2 % (0-1); EOSINOPHILS # (AUTO) 0.1 X10'3 (0-0.9); EOSINOPHILS % (AUTO) 0.6 % (0-6); HEMOGLOBIN 8.7 g/dl (14.0-17.9); LYMPHOCYTES # (AUTO) 1.1 X10'3 (1.1-4.8); LYMPHOCYTES % (AUTO) 6.6 % (21-51); MEAN CORPUSCULAR HEMOGLOBIN 28.6 PG (27.0-31.0); MEAN CORPUSCULAR HGB CONC 32.2 g/dL (33.0-36.5); MEAN PLATELET VOLUME 10.5 FL (7.4-10.4); MONOCYTES # (AUTO) 0.1 X10'3 (0-0.9); MONOCYTES % (AUTO) 0.6 % (2-12); NEUTROPHILS # (AUTO) 15.8 X10'3 (1.8-7.7); PLATELET COUNT 58 X10'3 (140-440); RED BLOOD COUNT 3.03 X10'6 (4.70-6.10); RED CELL DISTRIBUTION WIDTH 16.9 % (11.5-14.5); WHITE BLOOD COUNT 17.2 X10'3 (4.5-11.0)
[2020-03-04 05:45] LABS: ALANINE AMINOTRANSFERASE 25 U/L (12-78); ALBUMIN/GLOBULIN RATIO 0.6 (1.1-1.5); ALKALINE PHOSPHATASE 66 IU/L (46-116); ANION GAP 7 (8-16); ASPARTATE AMINO TRANSFERASE 28 U/L (10-37); BILIRUBIN,TOTAL 0.2 MG/DL (0.1-1.0); BLOOD UREA NITROGEN 18 MG/DL (7-18); BUN/CREATININE RATIO 11.8 (5.4-32.0); CALCIUM 8.7 MG/DL (8.5-10.1); CHLORIDE 109 MMOL/L (99-107); CREATININE 1.53 MG/DL (0.60-1.10); GLUCOSE 124 MG/DL (70-104); MAGNESIUM 1.7 MG/DL (1.5-2.4); PHOSPHORUS 2.9 MG/DL (2.3-4.5); POTASSIUM 3.4 MMOL/L (3.5-5.1); SODIUM 141 MMOL/L (135-145); TOTAL CARBON DIOXIDE 25.3 MMOL/L (24-32); TOTAL PROTEIN 5.6 G/DL (6.4-8.2); eGFR 44 ML/MIN
[2020-03-04 05:51] LABS: TOTAL CELLS COUNTED 100
[2020-03-04 05:52] LABS: ANISOCYTOSIS 1+; LARGE PLATELETS FEW; PLATELET ESTIMATE DECREASED
--- NOTE | 2020-03-04 06:00 | NUR ---
Patient in room [facility]. I have received report from YESENIA AVILES and had the opportunity to ask questions and assume patient care.
--- NOTE | 2020-03-04 06:34 | NUR ---
Problems reprioritized. Patient report given, questions answered & plan of care reviewed with Giovanna AVILES.
[2020-03-04] MEDS: K and/or MAG REPLACEMENT MC SCH (06:44)
[2020-03-04 07:00] VITALS: BP 157/77
[2020-03-04] MEDS: docusate sod 100mg capsule PO SCH (07:18)
[2020-03-04] MEDS: metroNIDAZOLE-Flagyl 500mg/NS 100 ML IV SCH (07:18)
[2020-03-04] MEDS: metoprolol succinate 25mg (24-HOUR) SR. Tablet PO SCH (07:18)
[2020-03-04] MEDS: buPROPion SR 150mg tablet PO SCH (07:19)
[2020-03-04] MEDS: iron polysaccharide complex 150mg capsule PO SCH (07:19)
[2020-03-04] MEDS: hyDRALAzine 10mg tablet PO SCH (07:19)
[2020-03-04] MEDS: lactobacillus rhamnosus 10,000 MMU CELLS/CAPSULE PO SCH (07:19)
[2020-03-04] MEDS: losartan 50mg tablet PO SCH (07:19)
[2020-03-04] MEDS: chlorthalidone 25mg tablet PO SCH (07:20)
[2020-03-04] MEDS: tamsulosin 0.4mg capsule PO SCH (07:20)
[2020-03-04] MEDS: sertraline 50mg tablet PO SCH (07:20)
[2020-03-04] MEDS: lansoprazole 15mg solutab PO SCH (07:23)
[2020-03-04] MEDS: finasteride 5mg tablet PO SCH (07:23)
[2020-03-04] MEDS: heparin, porcine 5000 units/ml vial SQ SCH (08:00)
[2020-03-04] MEDS: budesonide 0.5mg/2ml UD nebule IH SCH (08:32)
[2020-03-04] MEDS: potassium Cl 20 mEq SR tablet PO PRN (09:00)
--- NOTE | 2020-03-04 09:31 | NUR ---
PATIENT IS PLEASANTLY NON COMPLIANT. HE WILL NOT USE HIS IS EVEN THOUGH BEING EDUCATED ON HIS DIMINISHED LUNGS SOUNDS AND THE POSITIVE EFFECT IS CAN HAVE. PT WILL NOT AMBULATE , HE STATES, NOPE NOT GOING TO.
[2020-03-04] MEDS ORDERED: LEVO500T89 PO (10:48)
[2020-03-04] MEDS ORDERED: METR-159 PO (10:48)
--- NOTE | 2020-03-04 10:50 | NUR ---
DISCHARGE ORDER IN, WAITING FOR PHYSICAL THERAPY TO MAKE NOTE BEFORE DC'ING
[2020-03-04 11:00] VITALS: BP 152/61
== END 2020-03-04 12:45 | disposition home health service (06) | DRG 871 ==
LOC: ER 04:42 → ED HOLD 07:16 → SUR 3N 15:14
PROVIDERS: ADMIT Family Medicine; ATTEND Family Medicine
DX: A41.9 Sepsis, unspecified organism (principal); N17.0 Acute kidney failure with tubular necrosis; K57.32 Diverticulitis of large intestine without perforation or abscess without bleeding; C95.90 Leukemia, unspecified not having achieved remission; N17.9 Acute kidney failure, unspecified; N39.0 Urinary tract infection, site not specified; N18.9 Chronic kidney disease, unspecified; K21.9 Gastro-esophageal reflux disease without esophagitis; E11.22 Type 2 diabetes mellitus with diabetic chronic kidney disease; E78.5 Hyperlipidemia, unspecified; D46.9 Myelodysplastic syndrome, unspecified; F32.9 Major depressive disorder, single episode, unspecified; Z96.641 Presence of right artificial hip joint; Z96.651 Presence of right artificial knee joint; I12.9 Hypertensive chronic kidney disease with stage 1 through stage 4 chronic kidney disease, or unspecified chronic kidney disease; F41.8 Other specified anxiety disorders; J44.9 Chronic obstructive pulmonary disease, unspecified; N40.0 Benign prostatic hyperplasia without lower urinary tract symptoms; Z79.51 Long term (current) use of inhaled steroids; Z87.891 Personal history of nicotine dependence; Z95.0 Presence of cardiac pacemaker; Z95.5 Presence of coronary angioplasty implant and graft; Z88.8 Allergy status to other drugs, medicaments and biological substances; Z90.49 Acquired absence of other specified parts of digestive tract; Z79.899 Other long term (current) drug therapy
CPT/HCPCS: 36415; 71045; 74176; 80053; 80061; 81001; 82948; 83036; 83605; 83690; 83735; 84100; 84145; 85007; 85025; 87040; 87081; 87088; 94640; 94760; 96365; 97110; 97116; 97161; 97530; 97535; 99285; G0378; J1170; J1644; J1956; J2270; J2405; J3490; J7030; J7042; J7626; Q9963

== ENCOUNTER 2020-06-10 11:28 | Day surgery (SDC) | payer OTHER ==
[2020-06-06 14:08] LABS: BASOPHILS % (AUTO) 0.4 % (0-1); EOSINOPHILS % (AUTO) 0.1 % (0-6); LYMPHOCYTES # (AUTO) 1.2 X10'3 (1.1-4.8); LYMPHOCYTES % (AUTO) 51.3 % (21-51); MEAN CORPUSCULAR HEMOGLOBIN 29.4 PG (27.0-31.0); MEAN CORPUSCULAR HGB CONC 33.8 g/dL (33.0-36.5); MEAN CORPUSCULAR VOLUME 87.2 FL (78-98); MEAN PLATELET VOLUME 9.5 FL (7.4-10.4); MONOCYTES # (AUTO) 0.3 X10'3 (0-0.9); NEUTROPHILS # (AUTO) 0.8 X10'3 (1.8-7.7); NEUTROPHILS % (AUTO) 34.2 % (42-75); PRE OP HEMATOCRIT 24.2 % (42.0-52.0); RED BLOOD COUNT 2.77 X10'6 (4.70-6.10); RED CELL DISTRIBUTION WIDTH 17.2 % (11.5-14.5)
[2020-06-06 14:26] LABS: PRE OP INR 1.2 INR; PRE OP PROTIME 12.2 SECONDS (9.0-12.0)
[2020-06-06 14:38] LABS: PRE OP HEMOGLOBIN 8.2 g/dL (14.0-17.9); PRE OP PLATELET COUNT 10 X10'3 (140-440)
[2020-06-06 14:39] LABS: ALBUMIN 3.1 G/DL (3.4-5.0); ALBUMIN/GLOBULIN RATIO 0.6 (1.1-1.5); ALKALINE PHOSPHATASE 111 IU/L (46-116); BLOOD UREA NITROGEN 37 MG/DL (7-18); BUN/CREATININE RATIO 26.8 (5.4-32.0); CALCIUM 9.6 MG/DL (8.5-10.1); CHLORIDE 99 MMOL/L (99-107); CREATININE 1.38 MG/DL (0.60-1.10); PRE OP ALT 33 U/L (30-65); PRE OP ANION GAP 5 (8-16); PRE OP AST 26 U/L (10-37); PRE OP BILIRUB, TOTAL 0.5 MG/DL (0.0-1.0); PRE OP GLUCOSE 113 MG/DL (70-104); PRE OP SODIUM 134 MMOL/L (135-145); TOTAL CARBON DIOXIDE 29.9 MMOL/L (24-32); TOTAL PROTEIN 7.9 G/DL (6.4-8.2); eGFR 49 ML/MIN
[2020-06-06 15:43] LABS: TOTAL CELLS COUNTED 100
[2020-06-06 15:44] LABS: ANISOCYTOSIS 1+; LARGE PLATELETS FEW; PLATELET ESTIMATE DECREASED
[2020-06-06 15:45] LABS: POLYCHROMASIA FEW
[2020-06-06 15:46] LABS: SCHISTOCYTES FEW
[~2020-06-10] VITALS: Ht 175.3 cm; Wt 93.7 kg
[~2020-06-10 11:28] MED LIST changes: +ACET-1025 PO; +AMOX500C4 PO; -ATR0.5NEB NEB; -CHLO50TA PO; -CHOL20004 PO; +DOCUMENT DATE & TIME OF BETA-BLOCKER PO ONE; -FERR159T2 PEG; +GABA100C PO; -HYDR-4069 PO; +LIDOCAINE JELLY TOP; +ONDA8TAB13 PO; +ZINC57OI3 TOP; -[UNRECOGNIZED DRUG - CODE] PO; +famotidine 20mg tablet PO ONE; +ringers solution, lacted 1,000 ML IV SCH
[2020-06-10] MEDS ORDERED: LIDOcaine 1% (10mg/ml) 2ml vial ONE (12:04)
[2020-06-10 13:21] VITALS: BP 134/76
[2020-06-10] MEDS ORDERED: fentaNYL/PF 50MCG/1 ML 2ML syringe ONE (13:33)
[2020-06-10] MEDS ORDERED: midazolam 1 mg/ML 2ml injection ONE (13:34)
[2020-06-10] MEDS ORDERED: ketamine 50mg/5ml syringe ONE (13:34)
[2020-06-10 13:53] VITALS: BP 132/69
--- NOTE | 2020-06-10 13:53 | NUR ---
Received from OR via [facility] , accompanied by Anesthesiologist DR MABRY and report given by Anesthesiolgist. PT SLEEPY BUT AROUSABLE.
[2020-06-10 14:03] VITALS: BP 131/69
[2020-06-10 14:13] VITALS: BP 142/74
[2020-06-10 14:23] VITALS: BP 144/76
[2020-06-10 14:33] VITALS: BP 147/81
--- NOTE | 2020-06-10 15:13 | NUR ---
PT WAS DISCHARGED TO HOME TO [facility]IA [facility]C [facility] BR[facility]. PT STATED READINESS FOR DC TO HOME, DENIES PAIN AND NAUSEA. PT TOLERATED WATER WELL. BANDAID TO BONE MARROW BIOPSY SITE CDI. PT DENIES ANY NEEDS AND ALL BELONGINGS W/ PT UPON DC TO HOME INCLUDING GLASSES.
== END 2020-06-10 15:13 | disposition home or self-care (01) ==
LOC: PAS 11:28
PROVIDERS: ATTEND Pathology Anatomic Pathology & Clinical Pathology
DX: D46.9 Myelodysplastic syndrome, unspecified (principal); E11.9 Type 2 diabetes mellitus without complications; I11.0 Hypertensive heart disease with heart failure; I50.9 Heart failure, unspecified; D69.6 Thrombocytopenia, unspecified; I45.10 Unspecified right bundle-branch block; E78.5 Hyperlipidemia, unspecified; J44.9 Chronic obstructive pulmonary disease, unspecified; N40.0 Benign prostatic hyperplasia without lower urinary tract symptoms; G47.30 Sleep apnea, unspecified; I25.10 Atherosclerotic heart disease of native coronary artery without angina pectoris; Z20.822 Contact with and (suspected) exposure to COVID-19; Z95.5 Presence of coronary angioplasty implant and graft; Z95.0 Presence of cardiac pacemaker; Z95.2 Presence of prosthetic heart valve; Z88.8 Allergy status to other drugs, medicaments and biological substances; Z79.899 Other long term (current) drug therapy; Z79.82 Long term (current) use of aspirin; Z87.891 Personal history of nicotine dependence; Z72.89 Other problems related to lifestyle; Z90.49 Acquired absence of other specified parts of digestive tract; Z96.651 Presence of right artificial knee joint; Z96.641 Presence of right artificial hip joint; Z85.828 Personal history of other malignant neoplasm of skin
CPT/HCPCS: 36415; 38221; 76937; 80053; 82948; 85025; 85610; 85730; 87635; 93005; J2001; J2250; J3010; 85007; A4615; J7120